=== PATIENT | female | born 1950 ===

== ENCOUNTER 2024-10-11 09:50 | Outpatient (RCR) | payer MEDICAID, SELFPAY | END 2024-10-11 23:59 | disposition home or self-care (01) | LOC: RPT 09:50 | PROVIDERS: ATTENDING PHYSICIAN Student in an Organized Health Care Education/Training Program | DX: M25.512 Pain in left shoulder (principal); Z73.6 Limitation of activities due to disability; M62.81 Muscle weakness (generalized) | CPT/HCPCS: 97010; 97110; 97140; 97162 ==

== ENCOUNTER 2024-10-29 09:54 | Outpatient (RCR) | payer MEDICAID, SELFPAY | END 2024-11-04 07:33 | disposition home or self-care (01) | LOC: RPT 09:54 | PROVIDERS: ATTENDING PHYSICIAN Student in an Organized Health Care Education/Training Program | DX: M25.512 Pain in left shoulder (principal); Z73.6 Limitation of activities due to disability; M62.81 Muscle weakness (generalized) | CPT/HCPCS: 97010; 97110; 97140 ==